=== PATIENT | female | born 2000 | race Caucasian/White ===

== ENCOUNTER 2024-06-21 12:29 | Inpatient (IN) | payer OTHER, SELFPAY ==
[2024-06-21 12:35] VITALS: BP 113/71; BMI 27.8
[2024-06-21 13:28] LABS: % Basophils 0.3 % (0-2); % Eosinophils 0.1 % (0-6); % Immature Granulocytes 0.3 % (0-0.5); % Lymphocytes 21.4 % (20.5-51.1); % Monocytes 5.1 % (1.7-9.3); % Neutrophils 72.8 % (42.2-75.2); Absolute Lymphocytes 1.6 10^3/uL (1.2-3.4); Absolute Monocytes 0.4 10^3/uL (0.1-0.6); Absolute Neutrophils 5.6 10^3/uL (1.4-6.5); Hematocrit 38.3 % (37.0-47.0); Hemoglobin 13.5 g/dL (12.0-16.0); Mean Corp Hgb Conc. 35.2 g/dL (33.0-37.0); Mean Corpuscular Hgb 32.3 pg (27.0-31.0); Mean Corpuscular Volume 91.6 fL (81.0-99.0); Mean Platelet Volume 9.7 fL (7.4-10.4); Nucleated Red Blood Cells % 0 %; Platelet Count 276 10^3/uL (130-400); Red Blood Cell Count 4.18 10^6/uL (4.20-5.40); Red Cell Dist. Width 12.6 % (11.5-14.5); White Blood Cell Count 7.6 10^3/uL (4.8-10.8)
[2024-06-21] MEDS: PITOCIN 30 UNITS/NSS 500 ML IV (17:29)
[2024-06-21] MEDS: XYLOCAINE-MPF 1% VIAL 30 ML INFIL (17:58)
[2024-06-21] MEDS: TYLENOL 650 MG PO (18:58)
[2024-06-21] MEDS: MOTRIN 600 MG PO (18:59)
[2024-06-22 05:42] LABS: Hematocrit 35.1 % (37.0-47.0); Hemoglobin 12.3 g/dL (12.0-16.0)
[2024-06-22] MEDS: MOTRIN 600 MG PO (06:03)
[2024-06-22] MEDS: PRENATAL PLUS 1 TABLET PO (08:08)
[2024-06-22] MEDS: SENOKOT-S 1 TABLET PO (08:09)
[2024-06-22] MEDS: TYLENOL 650 MG PO ×2 (12:13→19:40)
[2024-06-22 16:37] LABS: Syphilis/T. pallidum Ab Reflex Negative (Negative)
[2024-06-23] MEDS: MOTRIN 600 MG PO (09:24)
[2024-06-23] MEDS: SENOKOT-S 1 TABLET PO (09:24)
[2024-06-23] MEDS: TYLENOL 650 MG PO (09:24)
[2024-06-23] MEDS: PRENATAL PLUS PO (09:24)
== END 2024-06-23 11:24 | disposition home or self-care (01) | DRG 807 ==
LOC: LDRP 12:29
PROVIDERS: ADMITTING PHYSICIAN Advanced Practice Midwife; ATTENDING PHYSICIAN Obstetrics & Gynecology
PROC: 0HQ9XZZ Repair Perineum Skin, External Approach (ICD-10-PCS; 2024-06-21)
PROC: 10E0XZZ Delivery of Products of Conception, External Approach (ICD-10-PCS; 2024-06-21)
PROC: 10907ZC Drainage of Amniotic Fluid, Therapeutic from Products of Conception, Via Natural or Artificial Opening (ICD-10-PCS; 2024-06-21)
DX: O48.0 Post-term pregnancy (principal); Z37.0 Single live birth; Z3A.40 40 weeks gestation of pregnancy; O70.0 First degree perineal laceration during delivery; O26.86 Pruritic urticarial papules and plaques of pregnancy (PUPPP)
CPT/HCPCS: 85014; 85018; 85025; 86780; 86850; 86900; 86901